=== PATIENT | female | born 1950 | race Caucasian/White ===

== ENCOUNTER 2016-10-13 07:24 | Day surgery (SDC) | payer OTHER, MEDICAID ==
[2016-10-13] MEDS ORDERED: D5 LR 1000 ML 1,000 ML IV ONE (08:22)
[2016-10-13] MEDS ORDERED: NS 1000 ML 1,000 ML ONE (08:49)
[2016-10-13] MEDS ORDERED: DIPRIVAN VIAL 20 ML ONE (09:23)
[2016-10-13 13:58] VITALS: BP 116/60
== END 2016-10-13 10:00 | disposition home or self-care (01) ==
LOC: SURG1 07:24
PROVIDERS: ATTEND Internal Medicine Gastroenterology
PROC: 0DJ08ZZ Inspection of Upper Intestinal Tract, Via Natural or Artificial Opening Endoscopic (ICD-10-PCS; principal; 2016-10-13 10:00)
PROC: 0DB68ZX Excision of Stomach, Via Natural or Artificial Opening Endoscopic, Diagnostic (ICD-10-PCS; principal; 2016-10-13 10:00)
DX: K21.9 Gastro-esophageal reflux disease without esophagitis (principal); R10.13 Epigastric pain; R18.8 Other ascites; K25.9 Gastric ulcer, unspecified as acute or chronic, without hemorrhage or perforation; K31.89 Other diseases of stomach and duodenum; K20.8 Other esophagitis; D50.8 Other iron deficiency anemias; R10.11 Right upper quadrant pain; R10.12 Left upper quadrant pain; Z87.19 Personal history of other diseases of the digestive system
CPT/HCPCS: A4217; J3490; J7120

== ENCOUNTER 2016-11-09 09:57 | Outpatient (CLI) | payer OTHER, MEDICAID ==
[2016-11-09 10:47] LABS: BASOPHILS % (AUTO) 0.5 % (0.2-1.0); EOSINOPHILS # (AUTO) 0.2 x10^3/uL (0.0-0.2); HEMATOCRIT 38.7 % (36.0-47.0); HEMOGLOBIN 12.9 g/dL (12.0-16.0); LYMPHOCYTES # (AUTO) 1.4 X10^3/uL (1.3-2.9); MEAN CORPUSCULAR HEMOGLOBIN 27.5 pg (27.0-34.0); MEAN CORPUSCULAR HGB CONC 33.3 g/dL (33.0-35.0); MEAN CORPUSCULAR VOLUME 82.8 fL (80.0-100.0); MEAN PLATELET VOLUME 10.1 fL (7.4-11.0); MONOCYTES # (AUTO) 0.4 x10^3/uL (0.3-0.8); MONOCYTES % (AUTO) 8.1 % (0.0-13.0); NEUTROPHILS # (AUTO) 2.5 x10^3/uL (2.2-4.8); NEUTROPHILS % (AUTO) 55.4 % (42.0-75.0); PLATELET COUNT 125 X10^3/uL (150.0-450.0); RED BLOOD COUNT 4.67 X10^6/uL (3.5-5.4); RED CELL DISTRIBUTION WIDTH 13.6 % (11.6-16.5); WHITE BLOOD COUNT 4.4 X10^3/uL (3.6-10.0)
[2016-11-09 11:02] LABS: ALANINE AMINOTRANSFERASE 34 Units/L (12-78); ALBUMIN 3.7 g/dL (3.4-5.0); ALKALINE PHOSPHATASE 104 Units/L (46-116); ASPARTATE AMINO TRANSFERASE 32 Units/L (15-37); BLOOD UREA NITROGEN 10 mg/dL (7-18); CALCIUM 9.3 mg/dL (8.5-10.1); CARBON DIOXIDE 29.9 mmol/L (21-32); CHLORIDE 104 mmol/L (98-107); COR NA(FOR HYPERGLY) 142 mmol/L (136-145); CREATININE 0.95 mg/dL (0.55-1.02); GLUCOSE 184 mg/dL (65-99); SODIUM 140 mmol/L (136-145); TOTAL PROTEIN 8.5 g/dL (6.4-8.2); eGFR BLACK RACES > 60 (>60); eGFR NON BLACK RACES > 60 (>60)
[2016-11-09] MEDS ORDERED: FENTANYL INJ 100 mcg ONE (11:06)
[2016-11-09] MEDS ORDERED: NS 500 ML IV 500 ML IV ONE (11:29)
[2016-11-09] MEDS ORDERED: XYLOCAINE 1 % (PLAIN) ONE (11:30)
[2016-11-09] MEDS ORDERED: VERSED ONE (15:19)
[2016-11-09] MEDS ORDERED: DIPRIVAN VIAL ONE (15:19)
[2016-11-09 15:37] VITALS: BP 128/63
--- NOTE | 2016-11-10 13:38 | CT ---
CT guided liver biopsy Indication: Cirrhosis of the liver. Liver biopsy. Technique: After discussion of risks and benefits, consent was obtained. Anesthesia was present and supplied sedation. Patient is placed supine on the CT scanner, with a grade in position. Time-out wa s performed. A weather teacher CT was performed through the liver and abdomen. A mia was placed on the skin. The patient was prepped and draped in the usual sterile fashion. Local anesthetic was applied. 19 ga uge trocar were introduced to the edge of the liver. CT fluoroscopic guidance was used throughout. 4 separate core biopsies were performed using the [employer] 20 gauge needle with 11 mm cores obtai elis. There are no immediate or delayed complications. Coronal and sagittal reformatted images were provided from the axial planning data set. Findings: Scattered aortic plaque noted. Limited images through lower chest shows no acute abnormali ty. Review of bone windows shows spine hardware without destructive osseous lesion. The liver is enlarged and cirrhotic with enlarged spleen and enlarged portal vein, all compatible wi th portal venous hypertension. The adrenal glands, kidneys and stomach show no acute abnormality. Sm all bowel is relatively normal. There is focal thickening at the transverse colon see axial images 3 8 through 41, with adjacent lymph node seen on axial image 36 measuring 8 mm. There is mild strandin g about the colon at this level. Underlying mass needs to be excluded. The posterior segment right l obe of the liver near the dome is heterogeneous see axial images 11-16 and underlying lesion is not excluded. Impression: 1. Technically successful liver biopsy, as described above, without acute complication. CT guidance was used throughout. 2. Thickening of the transverse colon with adjacent adenopathy. Underlying neoplasm needs to be excl uded. Colonoscopy followup recommended. THE AVAILABILITY OF THE REPORT AND FINDINGS WERE COMMUNICATED TO Dr. Cardoso by Dr. Khan on November 10, 2016 at 10:00 a.m. Reported By:
== END 2016-11-09 16:30 | disposition home or self-care (01) ==
LOC: RAD 09:57
PROVIDERS: ATTEND Internal Medicine Gastroenterology
PROC: 0FB03ZX Excision of Liver, Percutaneous Approach, Diagnostic (ICD-10-PCS; principal; 2016-11-09)
PROC: BF25ZZZ Computerized Tomography (CT Scan) of Liver (ICD-10-PCS; principal; 2016-11-09)
DX: K76.6 Portal hypertension (principal); K31.89 Other diseases of stomach and duodenum; K76.89 Other specified diseases of liver
CPT/HCPCS: 36415; 77012; 80053; 85025; 85610; 85730; A4222; J2001; J2250; J3010; J3490